=== PATIENT | female | born 1985 | race Caucasian/White ===

== ENCOUNTER 2018-07-26 13:53 | Observation (INO) | payer OTHER ==
[~2018-07-26] VITALS: Ht 167 cm; Wt 91.6 kg
[~2018-07-26 13:53] MED LIST: DSS100 PO; IBUP-2070 PO; PERCT PO; PREN1TAB80 PO
[2018-10-22 10:18] VITALS: BP 121/74
== END 2018-10-22 10:40 | disposition home or self-care (01) ==
LOC: UNDOADMOB 13:53 → NSY 13:53 → 4S 10-22 07:50
PROVIDERS: ADMIT Obstetrics & Gynecology Gynecology; ATTEND Obstetrics & Gynecology Gynecology
DX: O62.9 Abnormality of forces of labor, unspecified (principal); Z3A.38 38 weeks gestation of pregnancy
CPT/HCPCS: 36415; 81002; 89060; G0378

== ENCOUNTER 2018-10-24 07:45 | Inpatient (IN) | payer OTHER ==
[~2018-10-24] VITALS: Ht 170.2 cm; Wt 92.5 kg
[~2018-10-24 07:45] MED LIST changes: -DSS100 PO; -IBUP-2070 PO; -PERCT PO
[2018-10-24] MEDS ORDERED: RINGERS SOLUTION,LACTATED 1,000 ML IV ONE ×3 (08:27→22:00)
[2018-10-24] MEDS ORDERED: METOCLOPRAMIDE HCL 5 MG/ML 2 ML VIAL IVP ONE (08:30)
[2018-10-24] MEDS ORDERED: CITRIC ACID/SODIUM CITRATE 30 ML SOLUTION UDCUP PO ONE (08:30)
[2018-10-24 08:35] VITALS: BP 131/71
[2018-10-24 08:49] VITALS: BP 131/71
[2018-10-24 09:04] LABS: BASOPHILS % (AUTO) 0.3 % (0.0-2.0); EOSINOPHILS % (AUTO) 0.2 % (1.0-6.0); HEMOGLOBIN 12.9 g/dL (12.0-16.0); LYMPHOCYTES # (AUTO) 1.1 K/uL (1.0-4.8); LYMPHOCYTES % (AUTO) 10.5 % (22.0-44.0); MEAN CORPUSCULAR HEMOGLOBIN 26.5 pg (26.0-34.0); MEAN CORPUSCULAR HGB CONC 33.2 G/dL (31.0-37.0); MEAN CORPUSCULAR VOLUME 80 fL (80-100); MONOCYTES # (AUTO) 0.6 K/uL (0.1-1.0); NEUTROPHILS # (AUTO) 8.5 K/uL (1.8-7.7); PLATELET COUNT (AUTO)-OB 133 K/uL (150-450); RED BLOOD CELL COUNT(AUTO) 4.89 MIL/uL (4.00-5.20)
[2018-10-24 09:42] LABS: PLATELET MORPHOLOGY COMMENT LARGE PLTS PRESENT
[2018-10-24] MEDS ORDERED: FentaNYL CITRATE-PF 100 MCG/2 ML VIAL IVP PRN ×3 (10:00→14:00)
[2018-10-24] MEDS ORDERED: ROPIVACAINE HCL/PF 0.2% 100 ML ED ONE (10:33)
[2018-10-24] MEDS ORDERED: ONDANSETRON HCL 4 MG/2 ML VIAL IVP PRN ×2 (11:45→14:00)
[2018-10-24] MEDS ORDERED: DiphenhydrAMINE HCL 50 MG/ML VIAL IVP PRN ×2 (11:45→14:00)
[2018-10-24] MEDS ORDERED: ROPIVACAINE HCL/PF 0.2% 100 ML ED PRN (11:45)
[2018-10-24] MEDS ORDERED: MORPHINE SULFATE/PF 1 MG/ML 10 ML AMP ONE (11:56)
[2018-10-24] MEDS ORDERED: DEXAMETHASONE SOD PHOS 4 MG/ML VIAL ONE (11:56)
[2018-10-24] MEDS ORDERED: ONDANSETRON HCL 4 MG/2 ML VIAL ONE (11:56)
[2018-10-24] MEDS ORDERED: MIDAZOLAM HCL 2 MG/2 ML VIAL ONE (11:56)
[2018-10-24] MEDS ORDERED: KETOROLAC TROMETHAMINE 30 MG/ML VIAL ONE (11:56)
[2018-10-24] MEDS ORDERED: LIDOCAINE/PF 2% 5 ML VIAL ONE (11:57)
[2018-10-24] MEDS ORDERED: KETAMINE HCL 50 MG/ML 10 ML VIAL ONE (12:47)
[2018-10-24] MEDS ORDERED: NALOXONE HCL 0.4 MG/ML VIAL IVP PRN (14:00)
[2018-10-24] MEDS ORDERED: HYDROmorphone 2 MG/ML SYRINGE IVP PRN (14:00)
[2018-10-24] MEDS ORDERED: LANOLIN 7 GM OINTMENT TP PRN (14:00)
[2018-10-24] MEDS ORDERED: MEPERIDINE-PF 25 MG/ML VIAL IVP PRN (14:00)
[2018-10-24] MEDS ORDERED: OxyCODONE HCL/ACETAMINOPHEN 5-325 MG TABLET PO PRN ×2 (14:00)
[2018-10-24] MEDS: RINGERS SOLUTION,LACTATED 1,000 ML IV SCH (18:00)
[2018-10-24] MEDS: KETOROLAC TROMETHAMINE 30 MG/ML VIAL IVP SCH (18:05)
[2018-10-24] MEDS ORDERED: OXYGEN THERAPY IH SCH ×2 (20:00)
[2018-10-24] MEDS: SENNA/DOCUSATE SODIUM 8.6-50 MG TABLET PO SCH (23:10)
[2018-10-24] MEDS: MAGNESIUM HYDROXIDE SUSPENSION 30 ML UDCUP PO SCH (23:11)
[2018-10-25] MEDS: KETOROLAC TROMETHAMINE 30 MG/ML VIAL IVP SCH ×2 (00:24→06:11)
[2018-10-25] MEDS: RINGERS SOLUTION,LACTATED 1,000 ML IV SCH (00:25)
[2018-10-25] MEDS ORDERED: KETOROLAC TROMETHAMINE 60 MG/2 ML VIAL IM ONE (05:35)
[2018-10-25] MEDS ORDERED: OXYTOCIN 10 UNITS/ML VIAL IM ONE (05:35)
[2018-10-25 06:08] LABS: BASOPHILS % (AUTO) 0.1 % (0.0-2.0); EOSINOPHILS % (AUTO) 0.1 % (1.0-6.0); HEMATOCRIT 29.7 % (36-46); HEMOGLOBIN 10.2 g/dL (12.0-16.0); LYMPHOCYTES # (AUTO) 1.5 K/uL (1.0-4.8); LYMPHOCYTES % (AUTO) 17.2 % (22.0-44.0); MEAN CORPUSCULAR HEMOGLOBIN 27.3 pg (26.0-34.0); MEAN CORPUSCULAR HGB CONC 34.4 G/dL (31.0-37.0); MEAN CORPUSCULAR VOLUME 79 fL (80-100); MONOCYTES # (AUTO) 0.7 K/uL (0.1-1.0); MONOCYTES % (AUTO) 8.2 % (2.0-9.0); NEUTROPHILS # (AUTO) 6.4 K/uL (1.8-7.7); NEUTROPHILS % (AUTO) 74.4 % (40.0-70.0); PLATELET COUNT (AUTO)-OB 127 K/uL (150-450); RED BLOOD CELL COUNT(AUTO) 3.75 MIL/uL (4.00-5.20)
[2018-10-25] MEDS: OxyCODONE HCL/ACETAMINOPHEN 5-325 MG TABLET PO PRN ×2 (12:14→18:52)
[2018-10-25] MEDS: IBUPROFEN 600 MG TABLET PO PRN ×2 (12:14→18:52)
[2018-10-25] MEDS: SENNA/DOCUSATE SODIUM 8.6-50 MG TABLET PO SCH (20:42)
[2018-10-25] MEDS: MAGNESIUM HYDROXIDE SUSPENSION 30 ML UDCUP PO SCH (20:42)
[2018-10-26] MEDS: IBUPROFEN 600 MG TABLET PO PRN ×2 (01:58→08:13)
[2018-10-26] MEDS: OxyCODONE HCL/ACETAMINOPHEN 5-325 MG TABLET PO PRN ×2 (01:59→10:07)
[2018-10-26] MEDS ORDERED: IBUP-2070 PO (08:33)
[2018-10-26] MEDS ORDERED: PERCT PO (08:34)
[2018-10-26] MEDS ORDERED: DSS100 PO (08:34)
== END 2018-10-26 11:15 | disposition home or self-care (01) | DRG 785 ==
LOC: OBSVTOIN 07:45 → 4S 07:45
PROVIDERS: ADMIT Specialist; ATTEND Specialist
PROC: 10D00Z1 Extraction of Products of Conception, Low, Open Approach (ICD-10-PCS; principal; 2018-10-24)
PROC: 0UB70ZZ Excision of Bilateral Fallopian Tubes, Open Approach (ICD-10-PCS; 2018-10-24)
DX: O77.0 Labor and delivery complicated by meconium in amniotic fluid (principal); O34.211 Maternal care for low transverse scar from previous cesarean delivery; Z3A.38 38 weeks gestation of pregnancy; Z37.0 Single live birth; Z30.2 Encounter for sterilization
CPT/HCPCS: 86850; 86900; 86901; 87081; 88302; J0690; J1100; J1885; J2250; J2405; J2590; J2765; J2795; J3010; J3490; J7120